=== PATIENT | male | born 1935 | race Caucasian/White ===

== ENCOUNTER 2018-09-24 15:03 | Inpatient (IN) | payer MEDICARE ==
[~2018-09-24] VITALS: Ht 175.3 cm; Wt 73.1 kg
[2018-09-24] MEDS ORDERED: LEVO25TA4 PO (15:40)
[2018-09-24] MEDS ORDERED: TAMS-11 PO (15:40)
[2018-09-24] MEDS ORDERED: calcium 600 (15:40)
[2018-09-24] MEDS ORDERED: CYAN25009 PO (15:40)
[2018-09-24] MEDS ORDERED: LISI5TAB7 PO (15:40)
[2018-09-24] MEDS ORDERED: METO25TA35 PO (15:40)
[2018-09-24] MEDS ORDERED: ASPI-496 PO (15:40)
[2018-09-24] MEDS ORDERED: CHOL10003 PO (15:40)
[2018-09-24] MEDS ORDERED: SIMV40TA3 PO (15:40)
[2018-09-24 16:14] LABS: BASOPHILS # (AUTO) 0.03 x10^3/uL (0-0.1); BASOPHILS % (AUTO) 0 % (0-1); EOSINOPHILS # (AUTO) 0.19 x10^3/uL (0-0.4); EOSINOPHILS % (AUTO) 2 % (1-7); LYMPHOCYTES # (AUTO) 1.43 x10^3/uL (1-3.4); LYMPHOCYTES % (AUTO) 17 % (22-44); MD NO; MEAN CORPUSCULAR HEMOGLOBIN 32.9 pg (27.5-34.5); MEAN CORPUSCULAR HGB CONC 33.1 g/dL (33.2-36.2); MEAN CORPUSCULAR VOLUME 99.2 fL (81-97); MEAN PLATELET VOLUME 8.8 fL (7.4-10.4); MONOCYTES # (AUTO) 0.77 x10^3/uL (0.2-0.8); MONOCYTES % (AUTO) 9 % (2-9); NEUTROPHILS # (AUTO) 5.76 x10^3/uL (1.8-6.8); NEUTROPHILS % (AUTO) 70 % (42-75); PLATELET COUNT 285 x10^3/uL (130-400); RED BLOOD COUNT 4.33 x10^6/uL (4.38-5.82); RED CELL DISTRIBUTION WIDTH 12.8 % (9.4-14.8)
[2018-09-24 16:19] LABS: INTERNATIONAL NORMALIZED RATIO 1.02 (0.93-1.1); PROTHROMBIN TIME 10.7 Seconds (9.6-11.5)
[2018-09-24 16:20] LABS: ALBUMIN 3.8 g/dL (3.4-5.0); ANION GAP 6 mmol/L (5-15); CALCIUM 8.8 mg/dL (8.5-10.1); CHLORIDE 110 mmol/L (98-107)
[2018-09-24 16:25] LABS: CREATININE 0.91 mg/dL (0.7-1.3)
[2018-09-24 16:32] LABS: TROPONIN I 0.289 ng/mL (0.000-0.045)
[2018-09-24] MEDS ORDERED: HEPARIN 5,000 UNITS/ML, 1ML IV PRN (17:00)
[2018-09-24] MEDS ORDERED: HEPARIN 5,000 UNITS/ML, 1ML IV ONE (17:00)
[2018-09-24] MEDS ORDERED: ONDANSETRON 2MG/ML, 2ML IVPush PRN (17:30)
[2018-09-24] MEDS ORDERED: hydrALAzine 20 MG/ML, 1ML IVPush PRN (17:30)
[2018-09-24] MEDS ORDERED: SODIUM CHLORIDE FLUSH 10ML SYR IVF PRN (17:30)
[2018-09-24] MEDS ORDERED: morphine SULFATE 10 MG/ML, 1ML IVPush PRN (17:30)
[2018-09-24] MEDS ORDERED: HEPARIN 5,000 UNITS/ML, 1ML ONE ×2 (17:33→17:41)
[2018-09-24] MEDS ORDERED: HEPARIN 25,000 UNITS/500ML PMX 500 ML ONE (17:33)
[2018-09-24] MEDS: HEPARIN 25,000 UNITS/500ML PMX 500 ML IV PRN (17:51)
--- NOTE | 2018-09-24 19:05 | NUR ---
[facility] REPORT TO IVIS JIMENES
[2018-09-24 19:17] VITALS: BP 140/69
[2018-09-24] MEDS: ATORVASTATIN 80 MG TABLET PO SCH (20:17)
[2018-09-24 23:26] LABS: TROPONIN I 0.326 ng/mL (0.000-0.045)
[2018-09-25 00:31] VITALS: BP 113/62
[2018-09-25 03:11] VITALS: BP 122/49
[2018-09-25] MEDS ORDERED: NITROGLYCERIN 0.4 MG BOTTLE (25 TABS) SL ONE (03:26)
[2018-09-25] MEDS: NITROGLYCERIN 0.4 MG BOTTLE (25 TABS) SL PRN (03:29)
[2018-09-25] MEDS ORDERED: MORPHINE SULFATE 4 MG/ML, 1ML IVPush PRN (03:30)
[2018-09-25] MEDS: ASPIRIN 325 MG TABLET EC PO SCH (06:13)
[2018-09-25 06:34] LABS: ALBUMIN 3.2 g/dL (3.4-5.0); CALCIUM 8.2 mg/dL (8.5-10.1)
[2018-09-25 06:36] LABS: TROPONIN I 0.273 ng/mL (0.000-0.045)
[2018-09-25 06:37] LABS: ANION GAP 7 mmol/L (5-15); CHLORIDE 109 mmol/L (98-107)
[2018-09-25 06:46] LABS: ALANINE AMINOTRANSFERASE 25 U/L (12-78); ALKALINE PHOSPHATASE 62 U/L (45-117); BILIRUBIN,TOTAL 0.8 mg/dL (0.2-1.0); CREATININE 0.93 mg/dL (0.7-1.3); TOTAL PROTEIN 6.3 g/dL (6.4-8.2)
[2018-09-25 06:47] LABS: CHOLESTEROL, TOTAL 102 mg/dL (140-239); HDL CHOL % 50 % (26-37); HDL CHOLESTEROL (DIRECT) 51 mg/dL (40-60); LDL CHOLESTEROL,CALCULATED 40 mg/dL (54-169); LDL/HDL RATIO 0.8 (0.5-3.0); TRIGLYCERIDES 54 mg/dL (50-200); VLDL CHOLESTEROL 11 mg/dL (0-25)
[2018-09-25 07:10] VITALS: BP 119/57
[2018-09-25] MEDS: LEVOTHYROXINE 25 MCG TABLET PO SCH (07:39)
[2018-09-25] MEDS: METOPROLOL TARTRATE 25 MG TABLET PO SCH (09:00)
[2018-09-25] MEDS: TAMSULOSIN 0.4 MG CAP.ER.24H PO SCH (09:11)
[2018-09-25] MEDS: CHOLECALCIFEROL 1,000 UNIT TABLET PO SCH (09:11)
[2018-09-25] MEDS: CYANOCOBALAMIN 1,000 MCG TABLET PO SCH (09:11)
[2018-09-25] MEDS: LISINOPRIL 5 MG TABLET PO SCH (09:11)
[2018-09-25 12:32] VITALS: BP 97/50
[2018-09-25] MEDS: HEPARIN 25,000 UNITS/500ML PMX 500 ML IV PRN (17:08)
[2018-09-25 19:46] VITALS: BP 117/54
[2018-09-25] MEDS: ATORVASTATIN 80 MG TABLET PO SCH (20:37)
[2018-09-26 02:01] VITALS: BP 114/58
[2018-09-26 05:19] LABS: BASOPHILS # (AUTO) 0.03 x10^3/uL (0-0.1); BASOPHILS % (AUTO) 0 % (0-1); EOSINOPHILS # (AUTO) 0.24 x10^3/uL (0-0.4); EOSINOPHILS % (AUTO) 3 % (1-7); LYMPHOCYTES # (AUTO) 1.58 x10^3/uL (1-3.4); LYMPHOCYTES % (AUTO) 21 % (22-44); MD NO; MEAN CORPUSCULAR HEMOGLOBIN 33.5 pg (27.5-34.5); MEAN CORPUSCULAR HGB CONC 33.5 g/dL (33.2-36.2); MEAN CORPUSCULAR VOLUME 99.9 fL (81-97); MEAN PLATELET VOLUME 9.4 fL (7.4-10.4); MONOCYTES # (AUTO) 0.69 x10^3/uL (0.2-0.8); MONOCYTES % (AUTO) 9 % (2-9); NEUTROPHILS # (AUTO) 4.99 x10^3/uL (1.8-6.8); NEUTROPHILS % (AUTO) 66 % (42-75); PLATELET COUNT 238 x10^3/uL (130-400); RED BLOOD COUNT 4.08 x10^6/uL (4.38-5.82); RED CELL DISTRIBUTION WIDTH 13.1 % (9.4-14.8)
[2018-09-26 05:31] LABS: CHLORIDE 110 mmol/L (98-107)
[2018-09-26 05:38] LABS: ALANINE AMINOTRANSFERASE 25 U/L (12-78); ALBUMIN 3.2 g/dL (3.4-5.0); ALKALINE PHOSPHATASE 60 U/L (45-117); ANION GAP 5 mmol/L (5-15); BILIRUBIN,TOTAL 0.7 mg/dL (0.2-1.0); CALCIUM 8.5 mg/dL (8.5-10.1); CREATININE 0.92 mg/dL (0.7-1.3); TOTAL PROTEIN 6.2 g/dL (6.4-8.2)
[2018-09-26] MEDS: SODIUM CHLORIDE 0.9% 1,000 ML IV SCH ×2 (06:04→14:52)
[2018-09-26] MEDS: ASPIRIN 325 MG TABLET EC PO SCH (06:04)
[2018-09-26 07:20] VITALS: BP 125/64
[2018-09-26] MEDS: METOPROLOL TARTRATE 25 MG TABLET PO SCH (07:34)
[2018-09-26] MEDS: CYANOCOBALAMIN 1,000 MCG TABLET PO SCH (07:43)
[2018-09-26] MEDS: LEVOTHYROXINE 25 MCG TABLET PO SCH (07:43)
[2018-09-26] MEDS: CHOLECALCIFEROL 1,000 UNIT TABLET PO SCH (07:43)
[2018-09-26] MEDS: LISINOPRIL 5 MG TABLET PO SCH (07:44)
[2018-09-26] MEDS: TAMSULOSIN 0.4 MG CAP.ER.24H PO SCH (07:44)
[2018-09-26] MEDS ORDERED: SENNA/DOCUSATE TABLET PO PRN (09:00)
[2018-09-26 12:20] VITALS: BP 140/64
[2018-09-26] MEDS ORDERED: LIDOCAINE 2%, 20ML ONE (14:20)
[2018-09-26] MEDS ORDERED: BIVALIRUDIN 250 MG ONE (14:20)
[2018-09-26] MEDS ORDERED: TICAGRELOR 90 MG TABLET ONE (14:20)
[2018-09-26] MEDS ORDERED: FENTANYL PF 100 MCG/2ML ONE (14:20)
[2018-09-26] MEDS ORDERED: MIDAZOLAM 1 MG/ML, 2ML ONE (14:20)
[2018-09-26] MEDS ORDERED: VERAPAMIL 2.5 MG/ML, 2ML ONE (14:20)
[2018-09-26] MEDS ORDERED: HEPARIN 1,000 UNITS/ML, 10ML ONE (14:20)
[2018-09-26] MEDS ORDERED: SODIUM CHLORIDE 0.9% 1,000 ML IV SCH (16:02)
[2018-09-26 19:34] VITALS: BP 161/72
[2018-09-26] MEDS ORDERED: TICAGRELOR 90 MG TABLET PO SCH (21:00)
[2018-09-26] MEDS: ATORVASTATIN 80 MG TABLET PO SCH (21:02)
[2018-09-27] MEDS: NITROGLYCERIN 0.4 MG BOTTLE (25 TABS) SL PRN ×2 (00:45→03:44)
[2018-09-27 00:46] VITALS: BP 144/72
[2018-09-27 05:17] LABS: BASOPHILS # (AUTO) 0.01 x10^3/uL (0-0.1); BASOPHILS % (AUTO) 0 % (0-1); EOSINOPHILS # (AUTO) 0.14 x10^3/uL (0-0.4); EOSINOPHILS % (AUTO) 1 % (1-7); LYMPHOCYTES # (AUTO) 0.88 x10^3/uL (1-3.4); LYMPHOCYTES % (AUTO) 8 % (22-44); MD NO; MEAN CORPUSCULAR HEMOGLOBIN 33.7 pg (27.5-34.5); MEAN CORPUSCULAR HGB CONC 33.9 g/dL (33.2-36.2); MEAN CORPUSCULAR VOLUME 99.3 fL (81-97); MONOCYTES # (AUTO) 0.74 x10^3/uL (0.2-0.8); MONOCYTES % (AUTO) 7 % (2-9); NEUTROPHILS # (AUTO) 8.89 x10^3/uL (1.8-6.8); NEUTROPHILS % (AUTO) 83 % (42-75); PLATELET COUNT 266 x10^3/uL (130-400); RED BLOOD COUNT 4.44 x10^6/uL (4.38-5.82); RED CELL DISTRIBUTION WIDTH 13.2 % (9.4-14.8)
[2018-09-27 05:23] LABS: CHLORIDE 110 mmol/L (98-107)
[2018-09-27 05:38] LABS: ALANINE AMINOTRANSFERASE 33 U/L (12-78); ALBUMIN 3.6 g/dL (3.4-5.0); ALKALINE PHOSPHATASE 72 U/L (45-117); ANION GAP 7 mmol/L (5-15); BILIRUBIN,TOTAL 0.8 mg/dL (0.2-1.0); CALCIUM 8.7 mg/dL (8.5-10.1); CREATININE 1.01 mg/dL (0.7-1.3); TOTAL PROTEIN 6.9 g/dL (6.4-8.2)
[2018-09-27] MEDS: LISINOPRIL 5 MG TABLET PO SCH (08:05)
[2018-09-27] MEDS: CHOLECALCIFEROL 1,000 UNIT TABLET PO SCH (08:05)
[2018-09-27] MEDS: METOPROLOL TARTRATE 25 MG TABLET PO SCH (08:05)
[2018-09-27] MEDS: LEVOTHYROXINE 25 MCG TABLET PO SCH (08:06)
[2018-09-27] MEDS: CYANOCOBALAMIN 1,000 MCG TABLET PO SCH (08:06)
[2018-09-27] MEDS: TAMSULOSIN 0.4 MG CAP.ER.24H PO SCH (08:06)
[2018-09-27] MEDS ORDERED: ISOSORBIDE MONONITRATE ER 30 MG TABLET PO SCH (09:00)
[2018-09-27] MEDS ORDERED: ASPIRIN 81 MG TABLET EC PO SCH (09:00)
[2018-09-27] MEDS ORDERED: CLOPIDOGREL 75 MG TABLET PO ONE (09:00)
[2018-09-27] MEDS ORDERED: CLOP75TA52 PO (09:45)
[2018-09-27] MEDS ORDERED: METO25TA91 PO (09:45)
[2018-09-27] MEDS ORDERED: MAGN400T36 PO (09:45)
[2018-09-27 09:59] VITALS: BP 99/61
[2018-09-27] MEDS ORDERED: ATOR-2 PO (10:17)
[2018-09-28] MEDS ORDERED: CLOPIDOGREL 75 MG TABLET PO SCH (09:00)
== END 2018-09-27 11:34 | disposition home or self-care (01) | DRG 246 ==
LOC: ED 17:23 → EDIP 18:06 → 5SO 19:17 → DCLOUNGE 09-27 11:10
PROVIDERS: ADMIT Internal Medicine; ATTEND Internal Medicine
PROC: 027135Z Dilation of Coronary Artery, Two Arteries with Two Drug-eluting Intraluminal Devices, Percutaneous Approach (ICD-10-PCS; principal; 2018-09-26)
PROC: 02703ZZ Dilation of Coronary Artery, One Artery, Percutaneous Approach (ICD-10-PCS; 2018-09-26)
PROC: 4A023N7 Measurement of Cardiac Sampling and Pressure, Left Heart, Percutaneous Approach (ICD-10-PCS; 2018-09-26)
PROC: B2111ZZ Fluoroscopy of Multiple Coronary Arteries using Low Osmolar Contrast (ICD-10-PCS; 2018-09-26)
DX: I21.4 Non-ST elevation (NSTEMI) myocardial infarction (principal); I50.33 Acute on chronic diastolic (congestive) heart failure; E03.9 Hypothyroidism, unspecified; E78.5 Hyperlipidemia, unspecified; I10 Essential (primary) hypertension; I25.110 Atherosclerotic heart disease of native coronary artery with unstable angina pectoris; I65.23 Occlusion and stenosis of bilateral carotid arteries; N40.0 Benign prostatic hyperplasia without lower urinary tract symptoms; Z79.02 Long term (current) use of antithrombotics/antiplatelets; Z79.899 Other long term (current) drug therapy; Z86.711 Personal history of pulmonary embolism; I25.2 Old myocardial infarction; Z87.891 Personal history of nicotine dependence; Z90.49 Acquired absence of other specified parts of digestive tract; Z79.82 Long term (current) use of aspirin; Z95.5 Presence of coronary angioplasty implant and graft; I11.0 Hypertensive heart disease with heart failure
CPT/HCPCS: 36415; 71045; 80048; 80053; 80061; 82040; 84484; 85025; 85520; 85610; 85730; 92920; 93005; 93306; 93454; 93880; 96374; 99156; 99157; 99285; C1769; C1894; C9600; G0378; J0583; J1644; J2250; J3010; 92928; C1725; C1874; C1887; J7030; Q9967